=== PATIENT | female | born 1995 | race Caucasian/White ===

== ENCOUNTER 2024-09-08 16:42 | Emergency (ER) | payer BC ==
[~2024-09-08] VITALS: Ht 157.5 cm; Wt 74.8 kg
[2024-09-08] MEDS ORDERED: PRED50TA PO (16:58)
[2024-09-08] MEDS: FAMOTIDINE/PF INJ 20 MG/2 ML VIAL IV ONE (17:00)
[2024-09-08] MEDS: IV NS 0.9% 500 ML BAG IV ONE (17:00)
[2024-09-08] MEDS: diphenhydrAMINE HCL 50 MG/ML VIAL IV ONE (17:00)
[2024-09-08] MEDS: predniSONE 10 MG TABLET PO ONE (17:00)
[2024-09-08] MEDS ORDERED: diphenhydrAMINE HCL 50 MG/ML VIAL ONE (17:03)
[2024-09-08] MEDS ORDERED: FAMOTIDINE/PF INJ 20 MG/2 ML VIAL IV ONE (17:03)
[2024-09-08] MEDS ORDERED: predniSONE 20 MG TABLET ONE (17:03)
[2024-09-08] MEDS ORDERED: ALBUTEROL FS 2.5 MG/3 ML VIAL.NEB NEB ONE (17:30)
[2024-09-08] MEDS ORDERED: IPRATROPIUM NEB FS 0.5 MG/2.5 ML AMPUL.NEB NEB ONE (17:30)
[2024-09-08 18:15] VITALS: BP 131/86; TEMP 98.2; O2SAT 100
== END 2024-09-08 18:16 | disposition home or self-care (01) ==
LOC: ER 16:48
DX: T78.40XA Allergy, unspecified, initial encounter (principal); R06.02 Shortness of breath; R06.2 Wheezing; R09.89 Other specified symptoms and signs involving the circulatory and respiratory systems; L50.9 Urticaria, unspecified; Z79.52 Long term (current) use of systemic steroids; X58.XXXA Exposure to other specified factors, initial encounter
CPT/HCPCS: 99284; 96374; 96361; 96375; J1200; J3490; J7512 ×2; J7040